=== PATIENT | male | born 1975 ===

== ENCOUNTER 2018-05-21 20:47 | Emergency (ER) | payer BC ==
[2018-05-21] MEDS ORDERED: Diazepam TAB(*) 5 MG PO ONE (21:19)
[2018-05-21] MEDS ORDERED: Ketorolac TAB * 10 MG TAB PO ONE (21:19)
--- NOTE | 2018-05-21 22:37 | ED ---
Back Pain - HPI Summary HPI Summary: Patient complains of acute on chronic back pain after trying to lift metal object at noon today. Pain is located all over the right side back. Patient ambulatory. Denies incontinence, urinary retention, loss of sensation or function in bilateral lower extremities. Also denies fever, cough, sore throat , CP, SOB, N/V/D, abdominal pain, change in urinary BM. Medical history is chronic back pain. - History of Current Complaint Chief Complaint: EDBackInjuryPain Stated Complaint: BACK PAIN Time Seen by Provider: 05/21/18 21:12 Hx Obtained From: Patient Onset/Duration: Sudden Onset Onset/Duration: Started Hours Ago Timing: Constant Back Pain Location: Is Discrete @ Severity Initially: Severe Severity Currently: Moderate Pain Intensity: 8 Pain Scale Used: 0-10 Numeric Character: Sharp, Aching, Throbbing Aggravating Symptom(s): Movement, Bending, Walking Alleviating Symptom(s): Rest, Position Associated Signs And Symptoms: Positive: Negative - Allergies/Home Medications Allergies/Adverse Reactions: Allergies Allergy/AdvReac Type Severity Reaction Status Date / Time No Known Allergies Allergy Verified 05/21/18 20:51 PMH/Surg Hx/FS Hx/Imm Hx Endocrine/Hematology History: Denies: Hx Diabetes, Hx Thyroid Disease Cardiovascular History: Denies: Hx Hypertension, Hx Pacemaker/ICD Respiratory History: Denies: Hx Asthma, Hx Chronic Obstructive Pulmonary Disease (COPD) GI History: Denies: Hx Ulcer History: Denies: Hx Renal Disease Sensory History: Denies: Hx Eye Prosthesis Opthamlomology History: Denies: Hx Legally Blind EENT History: Denies: Hx Deafness Neurological History: Denies: Hx Dementia, Hx Seizures Psychiatric History: Reports: Hx Substance Abuse - Surgical History Surgery Procedure, Year, and Place: slipped epiphisis repair bilat hips (pins). 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 Substance Use Type: Reports: None Substance Use Comment - Amount & Last Used: not in 9 yrs Smoking Status (MU): Former Smoker Type: Cigars Amount Used/How Often: 7 cigs daily Review of Systems Constitutional: Negative Eyes: Negative ENT: Negative Cardiovascular: Negative Respiratory: Negative Gastrointestinal: Negative Genitourinary: Negative Positive: Myalgia Skin: Negative Neurological: Negative Psychological: Normal All Other Systems Reviewed And Are Negative: Yes Physical Exam - Summary Physical Exam Summary: No erythema, ecchymosis, mass, swelling, deformity noted to C-spine, T-spine, L- spine. Mild tenderness to palpation of paraspinal muscles of lumbar spine on right side. PMS intact distally in bilateral lower extremities. Triage Information Reviewed: Yes Vital Signs On Initial Exam: Initial Vitals Temp Pulse Resp BP Pulse Ox 99.9 F 81 18 159/88 97 05/21/18 20:50 05/21/18 20:50 05/21/18 20:50 05/21/18 20:50 05/21/18 20:50 Vital Signs Reviewed: Yes Appearance: Positive: Well-Appearing Skin: Positive: Warm Head/Face: Positive: Normal Head/Face Inspection Eyes: Positive: Normal Neck: Positive: Supple Respiratory/Lung Sounds: Positive: Clear to Auscultation Cardiovascular: Positive: Normal Abdomen Description: Positive: Nontender Musculoskeletal: Positive: Normal Neurological: Positive: Normal Psychiatric: Positive: Normal AVPU Assessment: Alert - [place] Coma Scale Best Eye Response: 4 - Spontaneous Best Motor Response: 6 - Obeys Commands Best Verbal Response: 5 - Oriented Coma Scale Total: 15 Diagnostics - Vital Signs Vital Signs Temp Pulse Resp BP Pulse Ox 05/21/18 21:35 18 05/21/18 20:50 99.9 F 81 18 159/88 97 - Laboratory Lab Statement: Any lab studies that have been ordered have been reviewed, and results considered in the medical decision making process. Back Pain Course/Dx - Course Course Of Treatment: Patient complains of acute on chronic back pain after trying to lift metal object at noon today. Pain is located all over the right side back. Patient ambulatory. Denies incontinence, urinary retention, loss of sensation or function in bilateral lower extremities. Also denies fever, cough, sore throat, CP, SOB, N/V/D, abdominal pain, change in urinary BM. Medical history is chronic back pain. Physical exam:No erythema, ecchymosis, mass, swelling, deformity noted to C-spine, T-spine, L-spine. Mild tenderness to palpation of paraspinal muscles of lumbar spine on right side. PMS intact distally in bilateral lower extremities. Vital signs within normal limits. Mild improvement of back pain with Valium 5 mg by mouth and Toradol 10 mg by mouth. Patient ambulatory. Rx for Valium 5 mg by mouth. Advised patient to rest back for 2 days. Patient understands and approves of the plan. - Diagnoses Provider Diagnoses: Acute exacerbation of chronic low back pain Discharge - Sign-Out/Discharge Documenting (check all that apply): Patient Departure - Discharge Plan Condition: Stable Disposition: HOME Prescriptions: Diazepam TAB(*) [Valium TAB(*)] 5 mg PO TID PRN 2 Days #6 tab MDD 3 tabs PRN Reason: Pain Patient Education Materials: Acute Low Back Pain (ED), Back Pain (ED) Referrals: No Primary Care Phys,NOPCP [Primary Care Provider] - Additional Instructions: Take Valium as prescribed. May also take ibuprofen with it. Use heating pads on your back. Rest until symptoms improve. Return to the ED for any new or worsening symptoms. - Billing Disposition and Condition Condition: STABLE Disposition: Home
[2018-05-21 23:15] VITALS: BP 130/82
== END 2018-05-21 23:16 | disposition home or self-care (01) ==
LOC: ED 20:47
DX: G89.29 Other chronic pain (principal); M54.5 Low back pain; M54.9 Dorsalgia, unspecified; Z87.891 Personal history of nicotine dependence
CPT/HCPCS: 99282; A9270-GY